=== PATIENT | female | born 1960 | race Caucasian/White ===

== ENCOUNTER → 2017-09-13 | Outpatient (CLI) | payer BC ==
[~2017-09-13] MED LIST: AMT24 PO; ETAN25IN4 INJ; FURO20TA PO; IMT100 PO; SYN75 PO; TOPI50TA24 PO; TRAM-10 PO
--- NOTE | 2017-09-13 15:35 | MAMMOGRAPHY REPORT ---
BILATERAL DIGITAL SCREENING MAMMOGRAM WITH CAD: 09/13/2017 CLINICAL HISTORY: Routine screening examination. History of bilateral breast implants. TECHNIQUE: Bilateral CC and MLO views of the breasts with and without implant displacement views were obtained. Current study was also evaluated with a Computer Aided Detection (CAD) system. COMPARISON: Comparison is made to exams dated: 03/11/2016 mammogram, 09/05/2012 mammogram, 08/31/2011 mammogram, 04/18/2010 mammogram - [facility], 04/17/2009, and 02/06/2008. BREAST COMPOSITION: The tissue of both breasts is heterogeneously dense, which may obscure small mas ses. FINDINGS: There are multiple bilateral groupings of benign-appearing round and coarse heterogeneous c alcifications. No suspicious mass, architectural distortion or cluster of new, suspicious microcalci fications is seen. IMPRESSION: ACR BI-RADS CATEGORY 1: NEGATIVE There is no mammographic evidence of malignancy. A 1 year screening mammogram is recommended. The pa tient will receive written notification of the results. Approximately 10% of breast cancers are not detected with mammography. A negative mammographic report should not delay biopsy if a clinically suggestive mass is present. Maricarmen Lazo M.D. ay/:09/13/2017 13:55:45 Pump Tester: Lois VAN(Basia)(M), [facility] letter sent: Normal 1/2 BI-RADS Code: ACR BI-RADS Category 1: Negative
== END | disposition home or self-care (01) ==
LOC: C.MAMM 13:12
PROVIDERS: ATTEND Obstetrics & Gynecology
DX: Z12.31 Encounter for screening mammogram for malignant neoplasm of breast (principal); Z98.82 Breast implant status

== ENCOUNTER → 2018-01-18 | Outpatient (CLI) | payer OTHER ==
[2018-01-18 13:39] LABS: BLOOD UREA NITROGEN 19 mg/dl (7-18); CALCIUM 9.5 mg/dl (8.5-10.1); CARBON DIOXIDE 25 mmol/L (21-32); CREATININE 0.82 mg/dl (0.60-1.20); GLUCOSE 90 mg/dl (70-99); SODIUM 140 mmol/L (136-145)
== END | disposition home or self-care (01) ==
LOC: C.LABBC 11:26
PROVIDERS: ATTEND Physician Assistant Medical
DX: E55.9 Vitamin D deficiency, unspecified (principal); E03.9 Hypothyroidism, unspecified; K59.00 Constipation, unspecified; M15.9 Polyosteoarthritis, unspecified; I87.2 Venous insufficiency (chronic) (peripheral); N95.1 Menopausal and female climacteric states